=== PATIENT | female | born 1940 | race Caucasian/White ===

== ENCOUNTER 2022-06-16 10:51 | Outpatient (CLI) | payer MEDICARE, SELFPAY ==
--- NOTE | 2022-06-16 11:30 | CRLHL7_ITS ---
For Patients: As a result of the Century Cures Act, medical imaging exams and procedure reports are released immediately into your electronic medical record. You may view this report before your referring provider. If you have questions, please contact your health care provider. BILATERAL SCREENING MAMMOGRAM WITH COMPUTER-AIDED DETECTION TECHNIQUE: CC and MLO views were obtained. These mammographic images have been obtained using full-field digital technique. These mammographic images were interpreted with the benefit of computer-aided detection. COMPARISON FILM: 06/15/21, 06/05/20, 05/13/19. FINDINGS: There are scattered areas of fibroglandular density IMPRESSION: There is no radiographic evidence for malignancy. ASSESSMENT: BI-RADS Category 1: Negative RECOMMENDATION: Routine screening mammogram in 1 year. A lay language report of this examination will be provided to the patient. Ronak Cantu M.D. Diagnostic Radiologist [email or web address] Transcribed: 2:10 p.carolina paz/Dictated by: Ronak Cantu MD @ 06/16/2022 12:17:00 PM (Electronically Signed)
== END 2022-06-16 10:52 | disposition home or self-care (01) ==
LOC: MAMMO 10:51
PROVIDERS: PCP Family Medicine; Visit Provider Family Medicine
DX: Z12.31 Encounter for screening mammogram for malignant neoplasm of breast (principal)
CPT/HCPCS: 77067

== ENCOUNTER 2023-01-03 14:15 | Outpatient (RCR) | payer MEDICARE, SELFPAY ==
--- NOTE | 2022-12-27 16:21 | PT.OPEX ---
[facility] PT [facility] Outpatient Eval Start: 12/20/22 11:36 Freq: Status: Active Protocol: Document 12/20/22 11:36 [facility] (Rec: 12/20/22 12:52 [facility] [id number]) E-signed By Mariano Ulrich, PT Physical Therapy Outpatient Evaluation Insurance Information Insurance Name Medicare B,[facility] Medical Diagnosis Left greater trochanteris bursitis Treating Diagnosis Left hip pain M25.552 Low back pain M54.[address] Constantin Quinones Subjective Subjective Starting ~3 months ago, patient started to have pain and difficulty getting out of bed. She had left low back pain that radiates down lateral aspect of hip to knee. No h/o falls. She used to exercise at gym 3x /week ([employer]) but stopped earlier this year. New activity in the recent two months is packing/unpacking up boxes for moving stuff to new home in [place]. Pt is leaving 01/09/23 for the winter. PLOF: active and painfree Left low back pain/aching will wake her up at night. Pt is taking up to 4,000 mg of Tylenol. Pain Comments Left low back/hip: 0-07/06 Date of Last Physician Visit 12/06/22 Current Work Status Retired Preferred Name Madelin Precautions Therapy Limitations/Systems Review Not Limited Objective Other/Pertinent Objective Posture: elevated right pelvis , shortened R QL, left trunk shift Balance: SLS: ~5 sec, natasha No pain left side. Subjectively, less steady on left side AROM: Lumbar: Flexion: limited 25%, non painful Extension: ltd 25%, left SIJ pain end range (+ concordant) Sidebend: WNL, painfree Strength: SL heel raise: R: 10x L: 3x, increase L buttock and knee pain Left LE: hip flexion 4/5 *, abduction 4/5, extension 4/5 knee extension 4+/5, knee flexion 5/5 ankle DF: 5/5 Special tests: SLR: + left LBP/buttock pain at ~70 deg hip flexion, no radiating pain SANDRA: + left Hip scour: - Muscle flexibilty: + reproduction of pain with piriformis (fig 4) stretch Marcelo: thigh to mat w/ knee flexed & extended (right knee flexed) Trunk rotation: knee to R, feels pull left buttock. No pain with knees to L LE ROM: WNL Palpation: + TTP left glut med /piriformis, high irritability non tender w/ PAs over L spine /sacrum or lumbar paraspinals +TTP left QL mild TTP left GT Left hip mobility: WNL, painfree Manual lumbar traction thru left leg: relieved symptoms Functional Test Performed & Score Ambulation: compensatory Trendelenburg left Assessment Assessment/Impression 82 year old female with left sided low back and lateral buttock pain that radiates to knee. Aggravated by sit to stand, ambulation and transitional movements in bed. Pt is otherwise healthy and active. PLOF: painfree left hip/LB Patient presents with mildly impaired lumbar extension w/ + concordant pain at end range, left SIJ irritability and palpation tenderness left glutes/piriformis. She demo mildly impaired strength left hip. Evaluation findings indicate Lumbosacral mechanical dysfunction with left buttock soft tissue irritability/tension. While manual therapy treatment was uncomfortable during the session, she reported positive response afterwards. Recommend skilled PT for continued MT to reduce soft tissue irritability in left hip and progress HEP to facilitate left hip/low back flexibility and strength. Primary Functional Limitations sit to stand, ambulation/ stairs, sleep Plan of Care Rehabilitation Potential Excellent Rehabilitation Potential Comments otherwise heathy/active self-motivated Physical Therapy Goals In 3-4 weeks, patient will: 1) Tfr sit to stand painfree left hip/buttock 2) Ambulate community distance , prn, with nearly symmetric gait and painfree 3) Be able to roll and transfer supine to/from sit painfree 4) Be I with HEP to facilitate continuing left hip flexibility and strength and self-management of residual symptoms Coordination/Communication With Referral Source Treatment Plan/Direct Interventions Manual Therapy,Neuromuscular Re-ed,Self-Care/Home Management,Therapeutic Exercises Direct Interventions Clarification MT to left hip/buttock soft Comments tissue, long axis traction Frequency/Duration 1x/week for 3-4 weeks Patient Will Be Discharged From Therapy Independent w/HEP, Independently Progressing Evaluation Billing Untimed Code Treatment Minutes 30 Complexity Moderate Certification Information Initial Certification Date 12/20/22 Ending Certification Date 02/19/23 Provider Signature Shows Agreement With POC & Medical Necessity Physician Signature & Date Requested Please Sign/Date Here Physician Comment/Change : Physician NPI Number #
== END 2023-01-03 17:31 | disposition home or self-care (01) ==
PROVIDERS: PCP Family Medicine; Visit Provider Orthopaedic Surgery Sports Medicine
DX: M70.62 Trochanteric bursitis, left hip (principal); Z51.89 Encounter for other specified aftercare
CPT/HCPCS: 97110; 97140; 97162

== ENCOUNTER 2023-06-19 09:59 | Outpatient (CLI) | payer MEDICARE, SELFPAY ==
--- NOTE | 2023-06-19 10:15 | MM_ITS ---
Patient: CHARITY DAAMS Facility:?[facility] Patient ID:?[id number] Site Patient ID:?[id number]. Site :?[id number] Study:?XRay-Breast Bilateral 3D W/CAD-06/19/2023 10:24:07 AM Ordering Physician:Mali Painter Final Report: BILATERAL SCREENING MAMMOGRAM WITH COMPUTER-AIDED DETECTION AND TOMOSYNTHESIS TECHNIQUE: CC and MLO views were obtained. These mammographic images have been obtained using full-field digital technique. These mammographic images were interpreted with the benefit of computer-aided detection. Breast tomosynthesis was used in this interpretation. COMPARISON FILM: 06/16/22, 06/15/21, 06/05/20. FINDINGS: There are scattered areas of fibroglandular density. IMPRESSION: There is no radiographic evidence for malignancy. ASSESSMENT: BI-RADS Category 1: Negative RECOMMENDATION: Routine screening mammogram in 1 year. A lay language report of this examination will be provided to the patient. JAYRO PEREZ M.D. Diagnostic Radiologist [email or web address] D& Transcribed: 3:[address]/Dictated by: Jyaro Perez MD @ 06/20/2023 12:25:00 PM Signed by:?Jayro Perez MD @06/20/2023 9:34:31 PM (Electronic Signature)
== END 2023-06-19 10:00 | disposition home or self-care (01) ==
PROVIDERS: PCP Family Medicine; Visit Provider Family Medicine
DX: Z12.31 Encounter for screening mammogram for malignant neoplasm of breast (principal)
CPT/HCPCS: 77063; 77067

== ENCOUNTER 2024-08-06 11:04 | Outpatient (CLI) | payer MEDICARE, SELFPAY ==
--- NOTE | 2024-08-06 11:30 | CRLHL7_ITS ---
For Patients: As a result of the Century Cures Act, medical imaging exams and procedure reports are released immediately into your electronic medical record. You may view this report before your referring provider. If you have questions, please contact your health care provider. INDICATION: BILATERAL SCREENING MAMMOGRAM, ASYMPTOMATIC 83 Y/O FEMALE COMPARISON: 06/19/2023, 06/16/2022, 06/15/2021 TECHNIQUE: Digital mammogram in CC and MLO projections including computer-aided detection (CAD) and tomosynthesis. BREAST COMPOSITION: The breasts are heterogeneously dense, which may obscure small masses. FINDINGS: No suspicious findings. ASSESSMENT: BI-RADS 1 Negative RECOMMENDATION: Annual screening mammogram. A lay language report of this examination will be provided to the patient. Dictated by: Ronak Cantu MD @ 08/08/2024 11:21:04 (Electronically Signed)
== END 2024-08-06 11:05 | disposition home or self-care (01) ==
LOC: MAMMO 11:05
PROVIDERS: PCP Family Medicine; Visit Provider Family Medicine
DX: Z12.31 Encounter for screening mammogram for malignant neoplasm of breast (principal); R92.333 Mammographic heterogeneous density, bilateral breasts
CPT/HCPCS: 77063; 77067